=== PATIENT | male | born 1965 | race Caucasian/White ===

== ENCOUNTER 2018-07-22 05:12 | Emergency (ER) | payer OTHER, SELFPAY ==
[2018-07-22 05:13] VITALS: BP 181/121; PULSE 86; RESP 18; TEMP 36.7; O2SAT 95; BMI 27.1
--- NOTE | 2018-07-22 05:25 | ED.VIS.GEN ---
History of Present Illness Chief Complaint: Back Narrative: he stated 2 days ago at work he was pulling an object and pulling it back to him and felt a pop in his right posterior rib. He is having pinpoint tenderness in his right posterior rib that is sharp. Worse with certain movements pushing on it and deep breathing. He has been using Tylenol with minimal relief. Is never hurt this before. Current severity is moderate. Difficult to get comfortable in sleep secondary to pain. Past Medical History - Allergies and Home Meds Allergies/Adverse Reactions: Allergies aspirin Allergy (Verified 07/22/18 05:17) Hives Primary Care Physician: Tresa Mancilla DO [Primary Care Provider] - Prior records reviewed: Yes Past Medical History: - - Reviewed Surgical History: - - Reviewed Smoking Status: Current every day smoker Alcohol: None Drugs: None Review of Systems General: Denies: Chills, Fever, Sweats Eyes: Denies: Visual changes - bilaterally, Diplopia ENT: Denies: Rhinorrhea, Sore throat Cardiovascular: Denies: Chest pain, Palpitations Respiratory: Denies: Dyspnea, Cough, Dyspnea on exertion Gastrointestinal: Denies: Abdominal pain, Nausea, Vomiting, Diarrhea, Melena, Hematochezia Genitourinary: Denies: Dysuria, Hematuria, Frequency Musculoskeletal: Reports: Back pain. Denies: Extremity Pain Skin: Denies: Rash, Wounds Neurological: Denies: Headache, Weakness, Numbness Physical Exam Vital Signs/Narrative: Vital Signs Temp Pulse Resp BP Pulse Ox 07/22/18 05:13 98.0 F 86 18 181/121 H 95 General: Well nourished, Well developed, No Acute Distress Head: Normocephalic, Atraumatic Eyes: Perrl, EOMI ENT: Moist mucous membranes, No rhinorrhea Neck: Supple, Nontender Cardiovascular: Regular rate, Regular rhythm, No murmurs Respiratory: No distress, CTA bilaterally, Chest nontender Abdomen: Soft, Nontender, Nondistended, Normal bowel sounds Back: Normal Inspection, - - point tenderness on his right inferior lateral rib cage no swelling deformity or bony step-off. No inflammation or contusion. Decreased range of motion bending secondary to pain in this area. Negative for: Nontender Extremities: Nontender, No edema Skin: Normal color, No rash Neurological: Alert, Oriented x3, Cranial nerves II-XII grossly intact, Normal Strength, Normal Sensation Psychological: Normal affect, Normal Mood Diagnostic/Tx/Re-eval - Medical Decision Making Patient given injection of morphine. He will rest and ice. I do not think he needs imaging studies as this was likely an intercostal rib strain from pulling an object at work. He will be given a short course of Percocet. ED Disposition - Plan for ED Patient: Disposition: Home or Assisted Living Diagnosis: Muscle strain Instructions: ED Sprain Thoracic Spine Prescriptions: Oxycodone HCl/Acetaminophen [Percocet 5/325] 1 - 2 tab PO Q6H PRN PRN 3 Days #12 tab PRN Reason: Pain Referrals: [facility] [GROUP OF PHYSICIANS] -
--- NOTE | 2018-07-22 05:38 | ED.RN ---
PT STATES HE NEEDS DRUG TESTING FOR BWC. MORPHINE PULLED AND THEN WASTED UNTIL AFTER URINE SAMPLE TAKEN.
[2018-07-22] MEDS: morphine 8 MG/ML Syringe IM (06:20)
[2018-07-22 06:52] VITALS: BP 175/100; PULSE 90; RESP 16; O2SAT 98
== END 2018-07-22 06:52 | disposition home or self-care (01) ==
PROVIDERS: Emergency Provider Emergency Medicine; Family Provider Family Medicine; PCP Family Medicine
DX: S29.012A Strain of muscle and tendon of back wall of thorax, initial encounter (principal); X50.9XXA Other and unspecified overexertion or strenuous movements or postures, initial encounter; Y93.9 Activity, unspecified; Y92.9 Unspecified place or not applicable; Y99.0 Civilian activity done for income or pay; F17.200 Nicotine dependence, unspecified, uncomplicated; Z88.6 Allergy status to analgesic agent
CPT/HCPCS: 96372; 99283

== ENCOUNTER 2018-10-15 09:28 | Observation (INO) | payer OTHER, SELFPAY ==
[2018-10-15] VITALS (12 sets, daily range): BP systolic 141–181; BP diastolic 93–116; PULSE 63–80; RESP 16–23; TEMP 36.4–36.8; O2SAT 96–98; BMI 27.0; BMI 24.3; BMI 24.4
--- NOTE | 2018-10-15 09:57 | EKG12_ITS ---
Test Reason : DIZZINESS Blood Pressure : / mmHG Vent. Rate : 074 BPM Atrial Rate : 074 BPM P-R Int : 152 ms QRS Dur : 084 ms QT Int : 392 ms P-R-T Axes : 060 -07 -21 degrees QTc Int : 435 ms Normal sinus rhythm with sinus arrhythmia Normal ECG Confirmed by MAJO ARTHUR, DARA ([id number]), clinical editor ALEXIS COOK ([id number]) on 10/17/2018 1:32:09 PM Referred By: Eva Croft Confirmed By:DARA KASPER MD
--- NOTE | 2018-10-15 09:57 | RAD_ITS ---
STUDY: X-RAY CHEST REASON FOR EXAM: Male, 53 years old. Left-sided chest TECHNIQUE: Single AP portable view of the chest. COMPARISON: 03/01/2010 FINDINGS: EKG leads overlie the chest The lungs are clear and expanded. There is no demonstrated pleural abnormality. Normal size heart. Normal mediastinum and kavitha. Normal visualized pulmonary arteries. Normal visualized aortic arch and descending thoracic aorta. Normal visualized thoracic spine. Normal visualized ribs, clavicles, and shoulders. There is no demonstrated abnormality of the visualized soft tissue structures of the upper abdomen. RAD/Chest 1 View (Portable) IMPRESSION: Normal x-ray examination of the chest. Electronically Signed: Heber Oro MD at 10:22 EDT , Service support ,
[2018-10-15 10:16] LABS: Absolute Lymphocyte Count 1.03 X10^3/uL (0.83-4.51); Absolute Neutrophil Count 5.3 X10^3/uL (2.0-7.7); Basophil# 0.02 X10^3/uL; Basophil% 0.3 % (0-1); Eosinophil# 0.15 X10^3/uL; Eosinophils% 2.2 % (0-5); Hematocrit 45.7 % (40-54); Hemoglobin 16.2 g/dL (13.0-16.5); Lymphocyte # 1.03 X10^3/ul (4.0); Lymphocyte % 14.8 % (19-41); Mean Corp Hgb Conc 35.4 g/dL (32-36); Mean Corpuscular Hgb 34.3 pg (27.0-32.0); Mean Corpuscular Volume 96.8 fL (80-94); Monocyte# 0.46 X10^3/uL; Monocyte% 6.6 % (0-10); NRBC Flagged by Analyzer 0 % (0-5); Neutrophil # 5.25 X10^3/uL (2.7-7.7); Neutrophil % 75.7 % (47-70); Platelet Count 171 K/mm3 (150-450); RBC Distribution Width CV 12.8 % (11.6-14.6); Red Blood Count 4.72 M/mm3 (4.6-6.2); White Blood Count 6.9 K/mm3 (4.4-11.0)
[2018-10-15 10:22] LABS: D-Dimer Quantitative (DVT/PE) 0.31 FEU/ug/m (0.27-0.49)
[2018-10-15] MEDS: 0.9% Normal Saline 1,000 ML 150 ML IV (10:26)
[2018-10-15 10:30] LABS: Anion Gap 7 (5-15); BUN 15 mg/dL (7-18); BUN/Creat Ratio 13.6 RATIO (10-20); Calcium,Total 8.6 mg/dL (8.5-10.1); Chloride 109 mmol/L (98-107); EST Glomerular Filtration Rate 74 mL/min (>60); Est Glom Filt Rate - Afr Amer 89 mL/min (>60); Estimated Creatinine Clearance 78.35 ml/min; Glucose 86 mg/dL (74-106); Potassium 4.4 mmol/L (3.5-5.1); Sodium Level 142 mmol/L (136-145); Thyroid Stim Hormone (TSH) 1.29 uIU/mL (0.358-3.74)
--- NOTE | 2018-10-15 10:56 | CT_ITS ---
STUDY: CTA CHEST REASON FOR EXAM: Male, 53 years old. Chest pain and dizziness RADIATION DOSAGE (If Supplied By Facility): CTDIvol = ( 14.02 ) mGy, DLP = ( 426.70 ) mGycm TECHNIQUE: The examination was performed with the intravenous administration of 100 IV Isovue 370. Post-processing of the angiographic images was performed, with multiplanar reformation and 3D reconstruction. Individualized dose optimization techniques were used for this CT. COMPARISON: None. FINDINGS: Normal enhancement of the main pulmonary artery and right and left pulmonary arteries. Normal enhancement of the bilateral peripheral pulmonary arteries. There is no demonstrated pulmonary embolism. Normal pleura. Moderate centrilobular emphysema. There is mild bilateral lower lobe atelectasis. No focal pulmonary consolidation. The central tracheobronchial tree is patent. There is trace aortic calcification. There is no demonstrated aortic dissection. Normal heart and pericardium. No mediastinal, axillary or bulky hilar adenopathy. Normal visualized trachea and bronchi. Normal chest wall structures. Normal osseous structures. Normal visualized upper abdomen. CT/CTA Chest W/WO Contrast IMPRESSION: No pulmonary embolism or arterial dissection. No focal pulmonary consolidation. Electronically Signed: Aleksandr Prieto, at 12:01 EDT Tel , Service support ,
--- NOTE | 2018-10-15 12:30 | ED.VISSUMM ---
- ER Visit Summary Date of Service: 10/15/18 Chief Complaint: [Chest pain] History of Present Illness: The patient is a 53 M [resents to the emergency department with complaint of chest pain and dizziness that started this morning around 4:30 AM. Patient states that at some point this morning he was working loading a truck and had discomfort in the center of his chest that was sharp stabbing subsequently developed pain in his left back that is pleuritic. Denies any cough. Denies any fever. Patient states he became very sweaty and diaphoretic very lightheaded. Patient just feels like he is off balance. 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 Patient is not had symptoms like this before. Patient has had history of hypertension but has been off meds for years.] Physical Examination: [HEENT-PERRLA, EOMI. Cranial nerves II through XII grossly intact. TMs clear. Mucous membranes moist. No adenopathy. Cardiovascular-regular rate and rhythm without murmur or ectopy Lungs-clear to auscultation, chest wall stable without crepitus or subcu emphysema Abdomen-normoactive bowel sounds, soft, nontender, no rebound or rigidity, no peritoneal signs. Extremities-intact ?4, normal range of motion, normal pulses, atraumatic] Test Results: [EKG obtained on arrival shows sinus rhythm with a ventricular rate 74 bpm with no acute segment changes. CBC with differential is normal. Chemistries were unremarkable. Troponin was less than 0.15. D-dimer was 0.31. TSH was 1.29. Chest x-ray showed nothing acute. CTA of the chest obtained to rule out dissection was negative for PE or dissection or anything acute. Static vital signs pending.] Emergency Department Course and Treatment: [Patient was given normal saline. Patient allergic to aspirin therefore he was given Plavix 85 mill grams p.o.] Treatment Plan: [Admit for further work-up and evaluation of his chest pain and symptoms as it is unclear the etiology.] Disposition: [Admit] Impression: [Chest pain Dizziness Dyspnea] This note was generated with [employer] software. It may contain incorrect words, spelling, and punctuation that were not noted in review of the chart prior to signing ED Disposition - Plan for ED Patient: Referrals: Giovany Johnson MD [Primary Care Provider] -
[2018-10-15] MEDS: 0.9% Normal Saline 1,000 ML 999 ML IV (12:37)
--- NOTE | 2018-10-15 12:56 | HP.PCM_ITS ---
Problem List (1) Atypical chest pain Status: Acute (2) Hypertension Status: Chronic History of Present Illness Date of Admission: 10/15/18 Chief Complaint: Chest pain. The patient is a 53 year old M with past medical history as mentioned above presented to the emergency room because of chest pain. His symptoms started this morning around 4:30 AM after he woke up from sleep with retrosternal chest pain, vague pain, mild, nonradiating, no associated symptoms and no aggravating or relieving factors. He went to work and at work, he started having left lateral chest pain, described as pleuritic sharp pain, nonradiating, aggravated by taking a deep breath, associated with shortness of breath and sweating. He mentioned that the pain on the left lateral chest is different from the retrosternal chest pain that he had earlier. At this time, he is still complaining of left lateral chest pain but he denies any more retrosternal chest pain. In the emergency department, his blood pressure was elevated, other vital signs were stable. His routine blood work was unremarkable. D-dimer was normal. CTA chest done and showed no PE or dissection, no pneumonia or pneumothorax. EKG revealed normal sinus rhythm, normal DE interval, normal QRS, normal QTC, no acute ischemic changes. Chest x-ray showed no acute findings. Troponin was negative. TSH was normal. He is being admitted for atypical chest pain for evaluation. Past Medical History Past Medical History (Chronic Problems): Chronic Problems Hypertension (Chronic) Allergies aspirin Allergy (Verified 10/15/18 09:29) Hives Home Medications: Ambulatory Orders Medication Instructions Recorded Acetaminophen [Tylenol] 650 mg PO DAILY 07/22/18 Omeprazole 20 mg PO DAILY 07/22/18 Surgical History: - - History of neck surgery. Psychiatric History: No pertinent psych hx Lives: Spouse/ Significant Other Smoking Status: Current every day smoker Tobacco Use: Cigarettes Alcohol: Occasional Drugs: None - *Family History Maternal History Items: Diabetes Paternal History Items: COPD Review of Systems Constitutional: Denies: Anorexia, Chills, Fever, Weakness Eyes: Denies: Blurred vision, Double vision, Drainage, Redness HEENT: Denies: Difficulty Hearing, Ear Pain, Eye Pain, Nasal Congestion, Sore Throat Cardiovascular: Reports: Chest Pain. Denies: Edema, Heaviness, Light Headedness, Orthopnea, Paroxysmal Noc. Dyspnea, Syncope Respiratory: Reports: Pleuritic Pain, Shortness of Breath. Denies: Cough, Hemoptysis, Sputum production, Wheezing Gastrointestinal: Denies: Abdominal Pain, Constipation, Diarrhea, Nausea, Vomiting Genitourinary: Denies: Dysuria, Frequency, Hematuria Musculoskeletal: Denies: Arm Pain, Back Pain, Foot Pain Skin: Denies: Dryness, Rash Neurological: Denies: Balance problems, Blurred vision, Double vision, Change in Speech, Focal weakness, Headaches, Incoordination Psychiatric: Denies: Anxiety, Depression Endocrine: Denies: Change in Body Habitus, Polyuria VTE Information - Inpt Only VTE Present on Admission: No VTE Mechan Device Prophylaxis: None VTE Pharm Prophylaxis ordered?: No Patient Problems: Active and Suspected Problems Atypical chest pain (Acute) - Physical Exam General: Alert, Oriented x3, Cooperative, No apparent distress HEENT: Atraumatic, PERRLA, EOMI, Normocephalic Oral: Moist Mucosa, No Gingival or Mucosal Lesions/ Ulcerations Neck: Supple, No JVD, Negative Carotid Bruits Lungs: Clear to auscultation, Normal air movement, No rhonchi, No wheeze, No rales, Diminished Cardiovascular: Regular rate, Regular Rhythm, Normal S1, Normal S2, PMI Normal Abdomen: Bowel Sounds Present, Soft, Non Tender, Non-Distended, No Hepato- splenomegaly Extremities: No clubbing, No cyanosis, No edema Skin: No rashes, No breakdown Lymphatic: No Cervical, Supraclavicular, or Inguinal Adenopathy Neurological: Cranial nerves II-XII grossly intact, Motor Exam 5/5 strength throughout Psych/Mental Status: Normal Affect, Appropriate, Alert and oriented to time, place, person, mood and affect Vital Signs Temp Pulse Resp BP Pulse Ox 98.2 F 69 18 162/103 H 96 10/15/18 09:29 10/15/18 12:37 10/15/18 12:37 10/15/18 12:33 10/15/18 12:37 Oxygen Delivery Method Room Air Weight: 188 lb 4.396 oz Body Mass Index (BMI) 27.0 Laboratory Tests Past 24 Hrs 10/15/18 10/15/18 10/15/18 09:40 09:40 09:40 WBC 6.9 RBC 4.72 Hgb 16.2 Hct 45.7 MCV 96.8 H MCH 34.3 H MCHC 35.4 RDW Std Deviation 46.0 H RDW Coeff of Jesenia 12.8 Plt Count 171 MPV 10.0 Immature Gran % (Auto) 0.400 Neut % (Auto) 75.7 H Lymph % (Auto) 14.8 L Kendall % (Auto) 6.6 Eos % (Auto) 2.2 Baso % (Auto) 0.3 Absolute Neuts (auto) 5.3 Absolute Lymphs (auto) 1.03 Absolute Nucleated RBC 0.00 Nucleated RBC % 0 D-Dimer Quant (PE/DVT) 0.31 Sodium 142 Potassium 4.4 Chloride 109 H Carbon Dioxide 26.0 Anion Gap 7 BUN 15 Creatinine 1.10 Estim Creat Clear Calc 78.35 Est GFR (MDRD) Af Amer 89 Est GFR (MDRD) Non-Af 74 BUN/Creatinine Ratio 13.6 Glucose 86 Calcium 8.6 Troponin I < 0.015 TSH 1.29 Clinical Impression(s) from Imaging Studies Chest X-Ray 10/15/18 09:57 IMPRESSION: Normal x-ray examination of the chest. Electronically Signed: Heber Oro MD at 10:22 EDT , Service support , Chest CTA 10/15/18 10:56 IMPRESSION: No pulmonary embolism or arterial dissection. No focal pulmonary consolidation. Electronically Signed: Aleksandr Prieto at 12:01 EDT Tel , Service support , Assessment/Plan All Active Problems Atypical chest pain (Acute) This is a 53 years old male patient presented to the emergency room because of atypical chest pain and he is being admitted for evaluation. #1 atypical chest pain: Patient had 2 different chest pains, retrosternal and left lateral pleuritic chest pain. EKG was unremarkable. Troponin is negative. CTA chest showed no PE, dissection or pneumothorax. Blood pressure is elevated, other vital signs are stable. Risk factors are age, smoking and history of hypertension. No family history of premature CAD. Plan: Admit to PCU for observation, cardiac monitoring, serial cardiac enzymes, IV fluids, IV morphine PRN, fasting lipid profile, nuclear stress test tomorrow morning if cardiac enzymes are negative. #2 elevated blood pressure: With history of hypertension, has been off medication for last 2 years because blood pressure has been okay. Plan: IV Dilaudid as needed, may need to start back on antihypertensive medications if his blood pressure remained high overnight. #3 hypertension: Plan as above. #4 history of lung collapse: This is according to the patient, had chest tube inserted. He mentioned that this happened because of severe cold weather. CTA chest showed no pneumothorax. #5 DVT prophylaxis: Low risk patient, no prophylaxis indicated. This note was generated with [employer] dictation software. It may contain incorrect words, spelling, and punctuation that were not noted in checking the note before signing. Code Visit OBSV E&M: 13924 Initial observation care L3
--- NOTE | 2018-10-15 13:08 | NURSING ---
103 ATYPICAL CP JOEY
--- NOTE | 2018-10-15 14:01 | EKG12_ITS ---
Test Reason : Blood Pressure : / mmHG Vent. Rate : 075 BPM Atrial Rate : 061 BPM P-R Int : 168 ms QRS Dur : 086 ms QT Int : 412 ms P-R-T Axes : 058 -14 -29 degrees QTc Int : 460 ms Sinus rhythm with occasional Premature ventricular complexes Nonspecific T wave abnormality Prolonged QT Abnormal ECG When compared with ECG of 01-MAR-2010 14:14, Premature ventricular complexes are now Present Confirmed by MAJO ARTHUR, DARA ([id number]), editor department JESSICA ANDERSON ([id number]) on 10/16/2018 2:07:08 PM Referred By: Eva Croft Confirmed By:DARA KASPER MD
[2018-10-15] MEDS: 0.9% Normal Saline 1,000 ML 75 ML IV (14:17)
[2018-10-15] MEDS: 0.9% NaCl Peripheral Flush Adult/Peds IV (15:49)
[2018-10-15] MEDS: hydrALAZINE 20 MG/ML Vial 10 MG IV (15:49)
[2018-10-15] MEDS: Acetaminophen 325 MG Tablet 650 MG PO (18:00)
[2018-10-15 18:34] LABS: International Normalized Ratio 0.9; Prothrombin Time (Protime)PT. 12.4 SECONDS (11.7-14.9)
[2018-10-15 18:35] LABS: Partial Thromboplast Time 28.2 Seconds (24.1-36.2)
[2018-10-16 02:00] VITALS: BP 150/102; PULSE 67; RESP 16; TEMP 36.6; O2SAT 96
[2018-10-16 03:00] VITALS: PULSE 74
[2018-10-16 05:00] VITALS: BP 158/93; PULSE 68; RESP 16; TEMP 36.6; O2SAT 97
[2018-10-16 05:33] LABS: Absolute Lymphocyte Count 1.39 X10^3/uL (0.83-4.51); Absolute Neutrophil Count 3.4 X10^3/uL (2.0-7.7); Basophil# 0.02 X10^3/uL; Basophil% 0.4 % (0-1); Eosinophil# 0.19 X10^3/uL; Eosinophils% 3.4 % (0-5); Hematocrit 44.8 % (40-54); Hemoglobin 15.6 g/dL (13.0-16.5); Lymphocyte # 1.39 X10^3/ul (4.0); Lymphocyte % 24.8 % (19-41); Mean Corp Hgb Conc 34.8 g/dL (32-36); Mean Corpuscular Hgb 33.6 pg (27.0-32.0); Mean Corpuscular Volume 96.6 fL (80-94); Mean Platelet Vol. 10.6 fl (6.2-12.0); Monocyte# 0.57 X10^3/uL; Monocyte% 10.2 % (0-10); NRBC Flagged by Analyzer 0 % (0-5); Neutrophil # 3.43 X10^3/uL (2.7-7.7); Platelet Count 156 K/mm3 (150-450); RBC Distribution Width CV 13.3 % (11.6-14.6); RBC Distribution Width SD 47.8 fl (35.1-43.9); Red Blood Count 4.64 M/mm3 (4.6-6.2); White Blood Count 5.6 K/mm3 (4.4-11.0)
--- NOTE | 2018-10-16 05:55 | EKG12_ITS ---
Test Reason : AM EKG Blood Pressure : / mmHG Vent. Rate : 065 BPM Atrial Rate : 065 BPM P-R Int : 170 ms QRS Dur : 092 ms QT Int : 432 ms P-R-T Axes : 063 -15 -40 degrees QTc Int : 449 ms Normal sinus rhythm Normal ECG When compared with ECG of 15-OCT-2018 13:53, MANUAL COMPARISON REQUIRED, DATA IS UNCONFIRMED Confirmed by BENSON ARTHUR, LUDIVINA ([id number]), features editor ALEXIS COOK ([id number]) on 10/19/2018 9:50:34 AM Referred By: Eva Croft Confirmed By:DARIN KNOWLES MD
[2018-10-16 06:01] LABS: Anion Gap 9 (5-15); BUN 13 mg/dL (7-18); BUN/Creat Ratio 15.1 RATIO (10-20); Calcium,Total 8.4 mg/dL (8.5-10.1); Chloride 108 mmol/L (98-107); Cholesterol 206 mg/dL (200); Creatinine, Serum 0.86 mg/dL (0.70-1.30); EST Glomerular Filtration Rate 98 mL/min (>60); Est Glom Filt Rate - Afr Amer 119 mL/min (>60); Estimated Creatinine Clearance 100.21 ml/min; Glucose 86 mg/dL (74-106); High Density Lipoprotein 52 mg/dL; Sodium Level 141 mmol/L (136-145); Triglycerides 124 mg/dL; Very Low Density Lipoprotein 25 mg/dL (5-40)
[2018-10-16 06:32] VITALS: PULSE 60
[2018-10-16 08:45] VITALS: BP 140/88; PULSE 74; RESP 16; TEMP 36.9; O2SAT 98
--- NOTE | 2018-10-16 08:45 | STRESSREP_ITS ---
Stress Test Report Exercise myocardial perfusion stress test. 53-year-old male with a history of chest pain. Next Stress protocol: Resting EKG demonstrates normal sinus rhythm with a rate of 64 bpm T wave inversion noted in lead III and aVF. Resting blood pressures 142/98 mmHg. The patient exercised according to regular Hans protocol for total duration of 10 minutes and 30 seconds completing 1 minute and 30 seconds to stage IV of the Hans protocol the maximum heart rate attained was 141 bpm which was 85% of maximum predicted heart rate and maximum workload was 12.5 metabolic equivalents. At rest there were no ST changes noted T wave inversion was noted in the inferior wall leads. At peak exercise upsloping ST changes only were not ed with no meet the criteria for ischemia. The resting blood pressure 142/98 with a peak blood pressure of 200/90 mmHg. Atypical chest pain was noted. Myocardial perfusion protocol. 11.8 mCi of technetium 99m sestamibi was injected at rest. The patient then exercised for 10-1/2 minutes attaining 12.5 metabolic equivalents. At peak exercise 33.5 mCi of technetium 99m sestamibi was injected stress images were obtained stress and rest images were reconstructed and compared in the short axis vertical and horizontal long axis. Gated images were also obtained. Perfusion SPECT analysis: Review of the stress images demonstrate normal uptake of tracer noted in all areas of the myocardium. The resting images similar demonstrate normal uptake of tracer noted in all areas of the myocardium. No areas of reversibility are noted suggest ischemia no previous infarct is noted. Gated SPECT analysis: Gated ejection fraction is noted to be 55%. Conclusion: Exercise stress test with no EKG evidence of ischemia. No clinical angina noted Nuclear images demonstrate no evidence of ischemia.
[2018-10-16] MEDS: amLODIPine 5 MG Tablet PO (08:50)
--- NOTE | 2018-10-16 09:01 | DCINST_ITS ---
- Discharge Diagnoses Current Active Problems: Current Active and Chronic Problems Atypical chest pain (Acute) Hypertension (Chronic) You will use the following diet at home:: Cardiac Your food should be the consistency of: Regular Discharge Activity: Return to Normal Activity Weight Bearing Status: Full weight bearing Call your doctor if you observe: Fever of 101 or Higher, Shortness of breath, Dizziness, Fainting spells, Chest pain, Increased palpitations (irregular heartbeat), Uncontrolled pain Instructions: Controlling High Blood Pressure, Taking Your Blood Pressure Allergies/Adverse Reactions: Allergies aspirin Allergy (Verified 10/15/18 09:29) Hives Medications to take at Discharge Acetaminophen [Tylenol] 650 mg PO PRN PRN 07/22/18 Omeprazole 20 mg PO DAILY 07/22/18 Amlodipine [Norvasc] 5 mg PO DAILY #30 tab 10/16/18 The following prescriptions were given: Amlodipine [Norvasc] 5 mg PO DAILY #30 tab Prescription Printed Primary Care Physician: Giovany Johnson MD [Primary Care Provider] - Please follow up with your Primary Care Physician in: 1 WEEK. Test Results: Test results from this visit will be discussed in further detail at your follow- up appointment, if applicable.
--- NOTE | 2018-10-16 12:10 | PCM.DC.SUM ---
Discharge Date and Diagnosis Date of Admission: 10/15/18 Date of Discharge: 10/16/18 - Primary Discharge Diagnosis #1 atypical chest pain, ACS ruled out. #2 hypertension, started back on antihypertensive medications. - Secondary Discharge Diagnosis Chronic Problems Hypertension (Chronic) Hospital Course and Treatment Imaging Results: 10/16/18 05:55 Nuclear Stress Test - Treadmil [NM] Routine Clinical Impression(s) from Imaging Studies Chest X-Ray 10/15/18 09:57 IMPRESSION: Normal x-ray examination of the chest. Electronically Signed: Heber Oro MD at 10:22 EDT , Service support , Chest CTA 10/15/18 10:56 IMPRESSION: No pulmonary embolism or arterial dissection. No focal pulmonary consolidation. Electronically Signed: Aleksandr Prieto at 12:01 EDT Tel , Service support , Procedures: EKG, Stress test Summary of Care Provided: Patient seen and examined on the day of discharge and appeared to be stable to be discharged home. He denies any more anterior chest pain but still having left lateral chest pain but improved. Denies shortness of breath. Denied cough or sputum production. Denies fever or chills. His vital signs are stable. The patient is a 53 year old M admitted because of atypical chest pain for evaluation. Patient came to the ED because of retrosternal chest pain followed by an episode of pleuritic left lateral chest pain. Chest x-ray done and showed no acute findings. CTA chest done for left lateral pleuritic chest pain and showed no PE or dissection, no pneumonia and no pneumothorax. Patient was admitted to PCU for observation, underwent serial cardiac enzymes that was unremarkable. EKG revealed no acute ischemic changes. Today, patient went for nuclear stress test that was negative without evidence of stress-induced myocardial ischemia and his ejection fraction was 55%. ACS ruled out. His routine blood work was unremarkable. Patient had a history of hypertension but he has been off his medication for the last couple of years because he mentioned that his blood pressure has been stable without medications. During this hospital stay, his blood pressure remained above 150 systolic and around 100 diastolic. Patient was started on Norvasc. Patient discharged home in a stable medical condition, discharged on Norvasc 5 mg p.o. daily, recommended to use Tylenol or ibuprofen [id number] for pleuritic chest pain which likely due to pleurisy, recommended to check blood pressure at least twice daily, follow-up with PCP in 1 week. - Physical Exam General: Alert, Oriented x3, Cooperative, No apparent distress HEENT: Atraumatic, PERRLA, EOMI, Normocephalic Oral: Moist Mucosa, No Gingival or Mucosal Lesions/ Ulcerations Neck: Supple, No JVD, Negative Carotid Bruits, Trachea Midline, Thyroid Normal Size and Texture Lungs: Clear to auscultation, Normal air movement, No rhonchi, No wheeze, No rales Cardiovascular: Regular rate, Regular Rhythm, Normal S1, Normal S2, PMI Normal Abdomen: Bowel Sounds Present, Soft, Non Tender, Non-Distended, No Hepato-splenomegaly Extremities: No clubbing, No cyanosis, No edema Skin: No rashes, No breakdown Lymphatic: No Cervical, Supraclavicular, or Inguinal Adenopathy Neurological: Cranial nerves II-XII grossly intact, Neuro grossly intact Psych/Mental Status: Normal Affect, Appropriate Vital Signs Temp Pulse Resp BP Pulse Ox 97.9 F 60 16 158/93 H 97 10/16/18 05:00 10/16/18 06:32 10/16/18 05:00 10/16/18 05:00 10/16/18 05:00 Oxygen Delivery Method Room Air Weight: 170 lb Body Mass Index (BMI) 24.3 Intake and Output for Last 24 Hours 10/14/18 10/15/18 10/16/18 23:59 23:59 23:59 Intake Total 1277 / 1277 214 / 214 Balance 1277 / 1277 214 / 214 Laboratory Tests Past 24 Hrs 10/15/18 10/15/18 10/15/18 14:43 17:25 17:45 WBC RBC Hgb Hct MCV MCH MCHC RDW Std Deviation RDW Coeff of [place] Plt Count MPV Immature Gran % (Auto) Neut % (Auto) Lymph % (Auto) [place] % (Auto) Eos % (Auto) Baso % (Auto) Absolute Neuts (auto) Absolute Lymphs (auto) Absolute Nucleated RBC Nucleated RBC % PT 12.4 INR 0.9 APTT 28.2 Sodium Potassium Chloride Carbon Dioxide Anion Gap BUN Creatinine Estim Creat Clear Calc Est GFR (MDRD) Af Amer Est GFR (MDRD) Non-Af BUN/Creatinine Ratio Glucose Calcium Troponin I < 0.015 < 0.015 Triglycerides Cholesterol LDL Cholesterol VLDL Cholesterol HDL Cholesterol 10/15/18 10/16/18 10/16/18 20:40 04:44 04:44 WBC 5.6 RBC 4.64 Hgb 15.6 Hct 44.8 MCV 96.6 H MCH 33.6 H MCHC 34.8 RDW Std Deviation 47.8 H RDW Coeff of [place] 13.3 Plt Count 156 MPV 10.6 Immature Gran % (Auto) 0.200 Neut % (Auto) 61.0 Lymph % (Auto) 24.8 [place] % (Auto) 10.2 H Eos % (Auto) 3.4 Baso % (Auto) 0.4 Absolute Neuts (auto) 3.4 Absolute Lymphs (auto) 1.39 Absolute Nucleated RBC 0.00 Nucleated RBC % 0 PT INR APTT Sodium 141 Potassium 4.0 Chloride 108 H Carbon Dioxide 24.0 Anion Gap 9 BUN 13 Creatinine 0.86 Estim Creat Clear Calc 100.21 Est GFR (MDRD) Af Amer 119 Est GFR (MDRD) Non-Af 98 BUN/Creatinine Ratio 15.1 Glucose 86 Calcium 8.4 L Troponin I < 0.015 Triglycerides 124 Cholesterol 206 H LDL Cholesterol 129 VLDL Cholesterol 25 HDL Cholesterol 52 Discharge Activity: Return to Normal Activity Weight Bearing Status: Full weight bearing Call your doctor if you observe: Fever of 101 or Higher, Shortness of breath, Dizziness, Fainting spells, Chest pain, Increased palpitations (irregular heartbeat), Uncontrolled pain Home Medications: Medications to take at Discharge Acetaminophen [Tylenol] 650 mg PO PRN PRN 07/22/18 Omeprazole 20 mg PO DAILY 07/22/18 Amlodipine [Norvasc] 5 mg PO DAILY #30 tab 10/16/18 Following Prescrptions Were Given to Patient: Amlodipine [Norvasc] 5 mg PO DAILY #30 tab Prescription Printed Primary Care Physician: Giovany Johnson MD [Primary Care Provider] - Please follow up with your Primary Care Physician in: 1 WEEK. Patient Instructions: Controlling High Blood Pressure, Taking Your Blood Pressure Disposition: Home Minutes spent on discharge:: 25 Patient Condition:: Stable Medical Necessity - Tobacco Use Smoking Status: Current every day smoker Tobacco Use: Cigarettes Meaningful Use Info Meaningful Use Diagnoses (Choose all that apply): None applicable Code Visit OBSV E&M: 77041 Observation care discharge
== END 2018-10-16 09:01 | disposition home or self-care (01) ==
LOC: ED 10:06 → PCU 12:56
PROVIDERS: Admitting Provider Hospitalist; Emergency Provider Emergency Medicine; Family Provider Family Medicine; PCP Family Medicine; Referring Provider Hospitalist; Visit Provider Hospitalist
DX: R07.89 Other chest pain (principal); R42 Dizziness and giddiness; I10 Essential (primary) hypertension; R06.00 Dyspnea, unspecified; R06.02 Shortness of breath; F17.210 Nicotine dependence, cigarettes, uncomplicated; I45.81 Long QT syndrome
CPT/HCPCS: 36415; 71045; 71275; 78452; 80048; 80061; 84443; 84484; 85025; 85379; 85610; 85730; 93005; 93017; 96361; 96374; 99218; 99285; 99406; A9500; J7030; Q9967; A4216; G0378

== ENCOUNTER 2020-07-24 07:50 | Emergency (ER) | payer OTHER, SELFPAY ==
[2020-07-24 07:50] VITALS: BP 152/95; PULSE 79; RESP 18; TEMP 36.4; O2SAT 99; BMI 27.0; BMI 27.8
--- NOTE | 2020-07-24 08:07 | EDS_ITS ---
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 Patient with continuous pain now and complains of severe pain with movement and difficulty walking. Patient does not have a history of back pain issues although he did have a cervical fusion about 7 years ago. Patient does have history of GERD, hypertension, high cholesterol. He denies recent illness. He denies any direct trauma. Patient denies pain radiating down his legs. Patient denies weakness in extremities. He denies change in bowel or bladder function. Prior similar symptoms: No PFSH PFSH Home Medications acetaminophen [Tylenol] 650 mg PO PRN PRN 07/22/18 [History Last Taken Unknown] omeprazole 20 mg PO DAILY 07/22/18 [History Last Taken 10/15/18 08:00] amlodipine 5 mg PO DAILY #30 tab 10/16/18 [Rx Last Taken Unknown] diazepam [Valium] 5 mg PO TID PRN #14 tab 07/24/20 [Rx Last Taken Unknown] hydrocodone-acetaminophen 1 tab PO Q4H PRN 3 Days #14 tab 07/24/20 [Rx Last Taken Unknown] Allergy/AdvReac Type Severity Reaction Status Date / Time aspirin Allergy Hives Verified 07/24/20 07:53 Surgical History H/O neck surgery Social History Smoking Status: Current every day smoker ROS ROS ED Constitutional Constitutional ED: Reports systems reviewed and no addt'l complaints, except as documented; Denies body ache(s), change in weight or chills Eyes Eyes: Denies acute decrease in peripheral vision, change in vision, double vision or loss of vision ENT ENT ED: Reports none; Denies ear pain, lip swelling, loss taste/smell, neck pain, otalgia or sore throat Cardiovascular Cardiovascular: Reports none; Denies abdominal pain, chest pain with activity, leg edema, lightheadedness, palpitations, rapid heart rate or syncope Respiratory/Chest Respiratory/Chest: Reports none; Denies change in mental status, dry cough, dyspnea, hemoptysis, shortness of breath at rest or shortness of breath with exertion Gastrointestinal Gastrointestinal: Reports none; Denies abdominal pain, change in stool lorena racter, diarrhea, hematemesis, hematochezia, melena, rectal bleeding or vomiting Genitourinary Genitourinary ED: Reports none; Denies abdominal discomfort, anuria, dysuria, genital pain or polyuria Musculoskeletal Musculoskeletal: Reports none and back pain; Denies arthralgias, difficulty walking, extremity pain, muscle weakness or myalgias Integumentary Reports none; Denies abscess or rash Neurologic Neurologic: Reports none; Denies abnormal gait, confusion, focal weakness, frequent falls, headache(s), loss of vision, numbness, paresthesias, radicular pain, vertigo or weakness Psychiatric Psychiatric: Reports systems reviewed and no addt'l complaints, except as documented and none; Denies behavioral changes, confusion, difficulty concentrating, hallucinations, suicidal ideation, tactile hallucinations or visual hallucinations Endocrine Endocrinology: Denies none, cold intolerance, excessive sweating, fatigue or heat intolerance Hematologic/Lymphatic Hematologic/Lymphatic: Reports none; Denies anemia, easy bleeding or easy bruising Allergic/Immunologic Allergic/Immunologic ED: Denies as per HPI, none, lip swelling, mouth swelling, throat swelling, tongue swelling or hives EXAM Physical Exam Const Vital Signs: 07/24/20 07:50 Temperature 97.6 F L Temperature Source Temporal Pulse Rate 79 Respiratory Rate 18 Blood Pressure 152/95 H Blood Pressure Mean 114 Pulse Ox 99 Oxygen Delivery Method Room Air Positive well nourished and well developed General Appearance ED: well developed and NAD HEENT Reports TM's clear and moist mucous membranes normocephalic and atraumatic; Negative for trauma or tenderness Tympanic Membrane ED: Yes TM's clear Eyes PERRL and EOMs intact bilaterally General Eye ED: Negative for pale conjunctiva or scleral icterus Neck no lymphadenopathy, supple and no JVD General: Negative for tenderness Chest Wall inspection of chest normal and palpation of chest normal Chest: Negative for tenderness Resp normal respiratory effort and clear to auscultation bilaterally Effort and Inspection: Negative for respiratory distress or pain with movement Auscultation: Negative for rhonchi, wheezes or diminished lung sounds Cardio regular rate, regular rhythm, S1 normal heart sound, S2 normal heart sound and no murmurs Peripheral Pulses: pulses 2+ throughout GI normal to inspection, nondistended, normoactive bowel sounds, soft to palpation, non-tender, non-distended and no masses Back/Spine no CVA tenderness Lumbar Spine / Lower Back: normal to inspection, ROM limited, pain with ROM, lumbar spinal tenderness, paraspinal muscle tenderness, paraspinal muscle spasm and straight leg raise negative bilaterally; Negative for lumbar ROM normal or mass present Extremity normal to inspection General Extremety ED: Negative for edema General Extremity: Negative for edema Neuro oriented x3, CN's II-XII intact bilaterally, no sensory deficits noted and gait normal Sensorium / Orientation: awake, alert, oriented to person, oriented to place and oriented to time Motor Exam: strength 5/5 throughout and strength abnormal Deep Tendon Reflexes: Rt Patellar (L4): 2+, Lt Patellar (L4): 2+, Rt Ankle (S1): 2+ and Lt Ankle (S1): 2+ Deep Tendon Reflexes Back: Rt Patellar (L4): 2+, Lt Patellar (L4): 2+, Rt Ankle (S1): 2+ and Lt Ankle (S1): 2+ Psych mental status grossly normal Skin no rashes or lesions noted and no wounds Image ED - Body Diagram Man: 1. MDM MDM MDM Narrative Medical decision making narrative: Patient feels improved after treatment in the department. Suspect likely muscle spasm as the etiology of his pain. He has no radiculopathic signs or symptoms. Patient will be given a prescription for [place], Valium, and advised to follow-up with [facility] in 3 to 5 days. He will be given work restrictions. Radiography Diagnostic Testing: Radiology Impression Lumbar Spine X-Ray 07/24/20 08:28 IMPRESSION: Degenerative changes of the spine, as detailed above. Loss of the normal lumbar lordosis. Electronically Signed: Sebastian Fragoso MD at 8:54 EDT , Service support , Lumbar spine x-rays obtained interpreted by myself as no acute fractures with evidence of some degenerative changes. Radiology was in agreement with interpretation. Discharge Plan Triage Chief Complaint: Back ED Provider: Sofi Arenas Dx/Rx/DC Orders Clinical Impression: Acute lumbar myofascial strain Instructions: ED Back Sprain/Strain Prescriptions: New diazepam [Valium] 5 mg tablet 5 mg PO TID PRN (Reason: spasms) Qty: 14 RF: 0 hydrocodone-acetaminophen 5-325 mg tablet 1 tab PO Q4H PRN (Reason: pain) 3 Days Qty: 14 RF: 0 No Action omeprazole 20 MG capsule,delayed release(DR/EC) 20 mg PO DAILY RF: 0 acetaminophen [Tylenol] 325 MG capsule 650 mg PO PRN PRN (Reason: arthritis pain) RF: 0 amlodipine 5 MG tablet 5 mg PO DAILY Qty: 30 RF: 0 Primary Care Provider: Giovany Johnson Referrals: [facility] [GROUP OF PHYSICIANS] - 3-5 Days Giovany Johnson MD [Primary Care Provider] - Disposition Disposition: Home, self care
[2020-07-24] MEDS: Orphenadrine 60 MG/2 ML Ampul IM (08:13)
[2020-07-24] MEDS: HYDROmorphone 1 MG/ML Syringe IM (08:13)
--- NOTE | 2020-07-24 08:28 | RAD_ITS ---
STUDY: X-RAY - LUMBAR SPINE REASON FOR EXAM: Male, 55 years old. Severe lower back pain following a lifting injury. TECHNIQUE: 3 view(s) of the lumbar spine were obtained. COMPARISON: None FINDINGS: There is straightening of the normal lumbar lordosis. There is a minimal levoscoliosis of the lumbar spine. There is a normal alignment of the vertebrae. There is multilevel endplate spondylosis of the lumbar vertebrae. There is multi-level degenerative disc disease with multi-level disc space narrowing. The soft tissue structures are unremarkable. RAD/Lumbar Spine 2 or 3 Views IMPRESSION: Degenerative changes of the spine, as detailed above. Loss of the normal lumbar lordosis. Electronically Signed: Sebastian Fragoso MD at 8:54 EDT , Service support ,
[2020-07-24 09:45] VITALS: BP 141/98; PULSE 70; RESP 18; O2SAT 95
== END 2020-07-24 09:46 | disposition home or self-care (01) ==
PROVIDERS: Emergency Provider Emergency Medicine; PCP Family Medicine
DX: S39.012A Strain of muscle, fascia and tendon of lower back, initial encounter (principal); M62.830 Muscle spasm of back; R26.2 Difficulty in walking, not elsewhere classified; X58.XXXA Exposure to other specified factors, initial encounter; Y93.9 Activity, unspecified; Y92.9 Unspecified place or not applicable; Y99.9 Unspecified external cause status; I10 Essential (primary) hypertension; E78.00 Pure hypercholesterolemia, unspecified; K21.9 Gastro-esophageal reflux disease without esophagitis; F17.200 Nicotine dependence, unspecified, uncomplicated; Z79.899 Other long term (current) drug therapy
CPT/HCPCS: 72100; 96372; 99283

== ENCOUNTER 2020-08-13 15:21 | Outpatient (RCR) | payer OTHER, SELFPAY ==
[2020-08-07 06:30] VITALS: BMI 27.8
--- NOTE | 2020-08-13 16:49 | HP.PTEVAL ---
Patient's Visit Information AUSTYN AGUILAR is a 55 year old M referred to Physical Therapy by VALENTIN Acevedo with a diagnosis of Lumbar strain. Date of Evaluation: 08/13/20 Physical Therapist: Deondre Jang, DPT, OCS, CSCS - Visit Plan Frequency: 2-3x /Week Duration: 4-6 Weeks Plan: 2-3x/week for 4 weeks for. 1. DTR to L piriformis and stretch same with concomitant L hip ext rotation ROM and LB ROM. 2. strengthen core and L hip. 3. body mecanics and postural focus. 4. ES and ice if needed. - Subjective 07/24...Working and cranking down a strap at work. [place] like someone took a hammer to his back, sent him straight to his knees from middle low back. Had to pull up with truck. Could not stand. Went to ER adn took x rays and gave shot in back of steroid. X rays were OK. Injection helped. F/U at now clinic. 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 Pain now is worse in am and 8/10 and hard to get shoes on. Better as day goes on. 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 Sittign an hour at a time. Hard time getting in and out of little car but not his big truck. No history of LBP. Hurts to stragithen left leg. Wakes up at night with pain still. Basic aDLs OK but hard to get down by feet. Hard to cross legs when watching TV at night. can get tingling in upper L leg , most pain now is L posterior hip. Hobbies include guitars , working on motorcycles, fishing. avoding guitar but can ivone in shed without lifting. - Pain L LB/hip Pain Intensity (Out of 10): 2 Pain Intensity Range: 0, 8 - Objective Walks slow but normal. Trasnfers slow out of low chair adn painful with bed trasnfers but I. steps are upright, reciprocal adn without pain. Tender to palpation over L piriformis area and SI muscles moderately, not in paraspinals and not to PA pressure./. + slump and SLR L hip pain. + ARNEL, - FADDIR L. - L hip scour. L/SAROM ext min limitations adn slight L pain, flexion mod limitations and hesitant . B SB withotu pain and min deficits. reflexes 2/3 patella and achilles B. Sensation LE WNL to gross light touch. strength LE 4/5 without myotomal problems. - Goals Goal 1:: Full LB AROM without pain and full hip ext rotation without pain. Goal Time Frame: 4-6 Weeks Goal 2:: Cross legs withotu any pain Goal Time Frame: 4-6 Weeks Goal 3:: Sleep without waking at night due to pain Goal Time Frame: 4-6 Weeks Goal 4:: Patient climb in and out of car without discomfort. Goal Time Frame: 4-6 Weeks Goal 5:: I approp HEP/body mechanics. to minimize future problems. Goal Time Frame: 4-6 Weeks - Rehabilitation Potential Physical Therapy Diagnosis: LBP with limtations in function due to pain and tenderness L post hip adn LB. Rehabilitation Potential: Good - Anticipated Interventions Patient/Client Instruction: Educate patient on: Condition For the Purpose of:: To decrease pain, To increase ROM Therapeutic Exercise to Include: Strength training, Flexibilty training, Passive ROM, Active ROM, [place] Exercises For the Purpose of:: To decrease pain, To increase ROM, To improve muscle performance and motor function, To improve ability of physical actions for home/community/work/leisure, To improve gait and locomotor functions Manual Therapy Techniques to Include: Soft tissue mobilization For the Purpose of:: To decrease pain, To increase ROM TENS: Yes Cryotherapy (ice pack, ice massage): Yes For the Purpose of:: To decrease pain Thank you for the opportunity to evaluate your patient. For Medicare and Medicare HMO plans, please review the plan of care and approve it. It will need to be FAXED BACK to us at [phone] for Medicare purposes. For Medicare only, by signing this I certify the plan of care. Please let me know if there are questions or concerns regarding this plan of care. Physician Signature: Date:
--- NOTE | 2020-10-20 12:16 | HP.PT.NRP ---
AUSTYN AGUILAR was seen in my office for initial evaluation on 08/13/20. The following Plan of Care was established for this patient: Initial Frequency: 2-3x /Week Initial Duration: 4-6 Weeks Patient/Client Instruction: Educate patient on: Condition For the Purpose of:: To decrease pain, To increase ROM Therapeutic Exercise to Include: Strength training, Flexibilty training, Passive ROM, Active ROM, [place] Exercises For the Purpose of:: To decrease pain, To increase ROM, To improve muscle performance and motor function, To improve ability of physical actions for home/community/work/leisure, To improve gait and locomotor functions Manual Therapy Techniques to Include: Soft tissue mobilization For the Purpose of:: To decrease pain, To increase ROM TENS: Yes Cryotherapy (ice pack, ice massage): Yes For the Purpose of:: To decrease pain This patient was last seen in our office 08/13/20. Pertinent comments regarding their Physical therapy will appear below: Pt attended evaluationa dn POC established. He then called to cancel all visits no longer thinking he needed PT. At this point, it has been over two months and I will disocontinue from my care. At this point I will be discontinuing this patient from physical therapy. I would be happy to see this patient again in the future if found appropriate by the physician. Thank you! Deondre Jang, DPT, OCS, CSCS Balance/Gait/Functional tests - Balance/Special Test Scores Oswestry Low Back Score: 21
== END 2020-08-13 19:00 | disposition home or self-care (01) ==
LOC: PT 15:21
PROVIDERS: PCP Family Medicine; Referring Provider Physician Assistant; Visit Provider Physician Assistant
DX: S39.012D Strain of muscle, fascia and tendon of lower back, subsequent encounter (principal); X58.XXXA Exposure to other specified factors, initial encounter
CPT/HCPCS: 97110; 97162